=== PATIENT | male | born 1990 | race Caucasian/White ===

== ENCOUNTER 2018-02-12 12:42 | Emergency (ER) | payer BC ==
[2018-02-12 12:50] VITALS: O2SAT 95
[2018-02-12] MEDS ORDERED: IBUPROFEN 600 MG TAB PO ONE (12:52)
--- NOTE | 2018-02-12 12:59 | EDPHY ---
H & P Time Seen by Provider: 02/12/18 12:58 HPI/ROS: Chief complaint. Shoulder injury HPI. 28-year-old male presents emergency department with injury to his left shoulder. He was snowboarding and fell on his left shoulder. He felt a pop. He has pain to left shoulder and increased pain with range of motion. Any movement of his arm bothers his left shoulder. However no elbow or wrist pain. Denies head injury or loss consciousness. Neck pain. Denies any other injuries. Injury occurred at [facility] just prior to arrival. Patient is left handed. No previous injury to the left shoulder or clavicle. ROS Constitutional. no fever/chills, no weakness Eyes. no problems with vision ENT. no sore throat, no nasal drainage Cardiovascular. no chest pain Respiratory. no shortness of breath, no cough Abdominal. no abdominal pain, no nausea/vomiting, no diarrhea . no problems urinating MS. Left shoulder pain Skin. no rash Lymph. no swollen glands Neuro. no headache, no dizziness, no difficulty walking or with speech Past Medical/Surgical History: Healthy Social History: Single, nonsmoker, no alcohol Smoking Status: Never smoked Physical Exam: General Appearance: Alert well-developed male moderate distress vital signs stable Eyes: Pupils equal and round no pallor or injection. ENT, Mouth: Mucous membranes are moist. Respiratory: There are no retractions, lungs are clear to auscultation. Cardiovascular: Regular rate and rhythm. Gastrointestinal: Abdomen is soft and nontender, no masses, bowel sounds normal. Neurological: Awake and alert, sensory and motor exams grossly normal. Skin: Warm and dry, no rashes. The no break in the skin over fracture Musculoskeletal: Neck is supple nontender. Extremities symmetrical, decreased range of motion about the left shoulder. Tenderness with palpable fracture distal 3rd left clavicle. Slight tenderness over the AC joint. No tenderness over the lateral shoulder. Elbow and wrist are normal. Psychiatric: Patient is oriented X 3, there is no agitation. Constitutional: Initial Vital Signs Temperature (C) 36.3 C 02/12/18 12:46 Heart Rate 70 02/12/18 12:46 Respiratory Rate 16 02/12/18 12:46 Blood Pressure 127/90 H 02/12/18 12:46 O2 Sat (%) 95 02/12/18 12:46 O2 Delivery Mode Room Air Allergies/Adverse Reactions: No Known Allergies Allergy (Unverified 02/12/18 12:46) Home Medications: Medication Instructions Recorded oxyCODONE/APAP 5/325 [Percocet 1 tab PO Q4-6PRN PRN #14 tab 02/12/18 5/325] Medical Decision Making - Diagnostics Imaging Results: Imaging Impressions Shoulder X-Ray 02/12/18 12:52 Impression: Acute, inferiorly displaced left clavicle fracture. X-ray of the left shoulder interpreted by me shows a comminuted midshaft left clavicle fracture. Procedures: Ibuprofen, Percocet, Zofran orally ED Course/Re-evaluation: Re-evaluation 1:15 p.m.. The patient, his family, and I discussed imaging study results, treatment plan, criteria for return and importance of follow-up and further evaluation. They expressed understanding and agreement Patient is placed in a sling Differential Diagnosis: I considered shoulder dislocation, AC separation, clavicle fracture, contusion. - Data Points Medications Given: Discontinued Medications Ibuprofen (Motrin) 600 mg PO EDNOW ONE Stop: 02/12/18 12:53 Last Admin: 02/12/18 12:55 Dose: 600 mg Ondansetron HCl (Zofran Odt) 4 mg PO EDNOW ONE Stop: 02/12/18 13:07 Last Admin: 02/12/18 13:08 Dose: 4 mg Oxycodone/Acetaminophen (Percocet 5/325) 1 tab PO EDNOW ONE Stop: 02/12/18 13:07 Last Admin: 02/12/18 13:08 Dose: 1 tab Departure - Departure Disposition: Home, Routine, Self-Care Clinical Impression: Closed left clavicular fracture Condition: Good Instructions: Clavicle Fracture (ED) Additional Instructions: Ice to the left shoulder area off and on for the next 48 hr. Ibuprofen 600 mg every 6 hr. Percocet in addition for discomfort. Wear your sling except while you are taking a shower Return for worsening symptoms. Re-evaluation by orthopedist in 5-7 days. Call for appointment. Referrals: Eben Rae MD [Medical Doctor] - 5-7 days, call for appt. Stand Alone Forms: Work Limited Duty Prescriptions: oxyCODONE/APAP 5/325 [Percocet 5/325] 1 tab PO Q4-6PRN PRN #14 tab PRN Reason: Pain, Moderate
[2018-02-12] MEDS ORDERED: ONDANSETRON DISINTEGRATING 4 MG TAB PO ONE (13:06)
[2018-02-12] MEDS ORDERED: OXYCODONE/APAP 5/325 TAB PO ONE (13:06)
[2018-02-12] MEDS ORDERED: ONDANSETRON DISINTEGRATING 4 MG TAB ONE (13:07)
[2018-02-12] MEDS ORDERED: OXYCODONE/APAP 5/325 TAB ONE (13:07)
[2018-02-12 13:40] VITALS: BP 125/78; PULSE 78; RESP 18; TEMP 98.6
== END 2018-02-12 13:35 | disposition home or self-care (01) ==
DX: S42.002A Fracture of unspecified part of left clavicle, initial encounter for closed fracture (principal); V00.311A Fall from snowboard, initial encounter; Y99.8 Other external cause status; Y93.23 Activity, snow (alpine) (downhill) skiing, snowboarding, sledding, tobogganing and snow tubing
CPT/HCPCS: A4565

== ENCOUNTER → 2018-04-09 | Outpatient (CLI) | payer BC | LOC: BMCIMAGING 17:07 | PROVIDERS: ATTEND Orthopaedic Surgery Hand Surgery | DX: Z47.89 Encounter for other orthopedic aftercare (principal); S42.022A Displaced fracture of shaft of left clavicle, initial encounter for closed fracture ==